=== PATIENT | male | born 1980 | race African-American/Black ===

== ENCOUNTER 2023-07-14 17:52 | Inpatient (IN) | payer OTHER ==
[2023-07-14 18:16] VITALS: BMI 23.1
[2023-07-14] MEDS ORDERED: MAGNESIUM HYDROX 2400MG/30ML ORAL SUSPENSION 30 ML CUP PO PRN (21:23)
[2023-07-14] MEDS ORDERED: guaiFENesin 600 MG TABLET.ER (FP) PO PRN (21:23)
[2023-07-14] MEDS ORDERED: LOPERAMIDE HCL 2 MG CAPSULE PO PRN (21:23)
[2023-07-14] MEDS ORDERED: BENZOCAINE/MENTHOL (CHLORASEPTIC ) LOZENGE MM PRN (21:23)
[2023-07-14] MEDS ORDERED: NALOXONE HCL (KLOXXADO) 8 MG SPRAY NS PRN (21:23)
[2023-07-14] MEDS ORDERED: DICYCLOMINE HCL 10 MG CAPSULE PO PRN (21:23)
[2023-07-14] MEDS ORDERED: NALOXONE HCL 0.4 MG/ML VIAL IM PRN (21:23)
[2023-07-14] MEDS ORDERED: BISMUTH SUBSALICYLATE 524 MG/30 ML PO PRN (21:23)
[2023-07-14] MEDS ORDERED: ACETAMINOPHEN 325 MG TABLET (FP) PO PRN (21:23)
[2023-07-14] MEDS ORDERED: ONDANSETRON *ODT* 4 MG TABLET SL PRN (21:23)
[2023-07-14] MEDS ORDERED: IBUPROFEN 400 MG TABLET (FP) PO PRN (21:23)
[2023-07-14] MEDS ORDERED: BENZONATATE 200 MG CAPSULE PO PRN (21:23)
[2023-07-14] MEDS: THIAMINE HCL 100 MG TABLET (FP) PO SCH (22:58)
[2023-07-14] MEDS: MELATONIN 5 MG TABLETS PO SCH (22:59)
[2023-07-14] MEDS: METHOCARBAMOL 500 MG TABLET PO PRN (22:59)
[2023-07-15] MEDS: hydrOXYzine PAMOATE 25 MG CAPSULE (FP) PO PRN (06:05)
[2023-07-15] MEDS: BICTEGRAV/EMTRICIT/TENOFOV (BIKTARVY) 50-200-25 MG TABLET PO SCH (10:07)
[2023-07-15] MEDS: PRENATAL VITAMINS W/ FOLIC ACID TABLET (FP) PO SCH (10:07)
[2023-07-15] MEDS: NICOTINE 14 MG/24 HOURS TOPICAL PATCH TD SCH (10:07)
[2023-07-15] MEDS: NICOTINE POLACRILEX 2 MG GUM BUC PRN (10:08)
[2023-07-15 10:43] LABS: CHLORIDE 101 mmol/L (98-107); POTASSIUM 4.3 mmol/L (3.5-5.1); SODIUM 137 mmol/L (136-145)
[2023-07-15 10:46] LABS: HEMATOCRIT 32.2 % (35.4-49); HEMOGLOBIN 10.4 GM/dL (11.7-16.9); MCH 26.6 pg (25.7-33.7); MCHC 32.4 g/dl (32.0-35.9); MEAN CELL VOLUME 82.1 fl (80-96); MEAN PLT VOLUME 8.6 fl (7.5-11.1); PLATELET COUNT 309 10^3/uL (134-434); RBC 3.92 M/mm3 (4.00-5.60); RDW 14.1 % (11.9-15.9); WHITE BLOOD COUNT 3.4 K/mm3 (4.0-10.0)
[2023-07-15 10:49] LABS: ALBUMIN 3.4 g/dl (3.4-5.0); ANION GAP 5 mmol/L (4-13); BLOOD UREA NITROGEN 6.8 mg/dL (7-18); CALCIUM 9.1 mg/dL (8.5-10.1); CO2 32 mmol/L (21-32); GLUCOSE,RANDOM 71 mg/dL (74-106)
[2023-07-15 10:52] LABS: CREATININE 0.8 mg/dL (0.55-1.3); SGOT/AST 36 U/L (15-37); SGPT/ALT 29 U/L (13-61)
[2023-07-15 10:54] LABS: BILIRUBIN,TOTAL 0.6 mg/dL (0.2-1); TOT PROT 8.4 g/dl (6.4-8.2)
[2023-07-15 10:55] LABS: ALK PHOS 108 U/L (45-117)
[2023-07-15] MEDS: diazePAM 5 MG TABLET PO PRN (13:03)
[2023-07-15] MEDS: diazePAM 5 MG TABLET PO SCH (17:35)
[2023-07-16] MEDS: IBUPROFEN 600 MG TABLET (FP) PO PRN (05:13)
[2023-07-16] MEDS: ARTIFICIAL TEARS OPHTHALMIC DROPS OS PRN (13:05)
[2023-07-17] MEDS: diazePAM 5 MG TABLET PO SCH (05:23)
[2023-07-17] MEDS: QUEtiapine FUMARATE 50 MG TABLET PO SCH (22:04)
[2023-07-17] MEDS: traZODone HCL 50 MG TABLET (FP) PO SCH (22:04)
[2023-07-18] MEDS: diazePAM 5 MG TABLET PO SCH (05:41)
[2023-07-18] MEDS: POLYETHYLENE GLYCOL (HEALTHYLAX) 3350 17 GM PACKET PO PRN (07:35)
[2023-07-18] MEDS: SULFAMETHOXAZOLE/TRIMETHOPRIM 800MG/160MG D.S. TABLET PO SCH (21:32)
[2023-07-18] MEDS: METHOCARBAMOL 500 MG TABLET PO PRN (21:33)
[2023-07-19] MEDS: diazePAM 5 MG TABLET PO ONE (05:08)
[2023-07-19] MEDS: MAG HYDROX/AL HYDROX/SIMETH 30 ML UNIT-DOSE CUP PO PRN (05:10)
[2023-07-19 09:06] VITALS: BP 130/78; PULSE 105; RESP 18; TEMP 99.1
== END 2023-07-19 11:34 | disposition other institution (70) | DRG 774 ==
LOC: YASAS 17:52 → Y3N 22:02
PROVIDERS: ADMIT Allergy & Immunology; ATTEND Surgery
PROC: HZ2ZZZZ Detoxification Services for Substance Abuse Treatment (ICD-10-PCS; principal; 2023-07-14)
DX: F10.230 Alcohol dependence with withdrawal, uncomplicated (principal); F14.20 Cocaine dependence, uncomplicated; F17.210 Nicotine dependence, cigarettes, uncomplicated; F19.282 Other psychoactive substance dependence with psychoactive substance-induced sleep disorder; F19.280 Other psychoactive substance dependence with psychoactive substance-induced anxiety disorder; F19.24 Other psychoactive substance dependence with psychoactive substance-induced mood disorder; F41.1 Generalized anxiety disorder; F32.9 Major depressive disorder, single episode, unspecified; F43.10 Post-traumatic stress disorder, unspecified; Z21 Asymptomatic human immunodeficiency virus [HIV] infection status; Z62.810 Personal history of physical and sexual abuse in childhood
CPT/HCPCS: 36415; 80053; 80305; 80307; 85027; 86780; 87635; 93005; 93010

== ENCOUNTER 2023-09-02 09:46 | Inpatient (IN) | payer OTHER ==
[2023-09-02 10:19] VITALS: BMI 23.2
[2023-09-02] MEDS ORDERED: ONDANSETRON *ODT* 4 MG TABLET SL PRN (10:50)
[2023-09-02] MEDS ORDERED: ACETAMINOPHEN 325 MG TABLET (FP) PO PRN (10:50)
[2023-09-02] MEDS ORDERED: BISMUTH SUBSALICYLATE 524 MG/30 ML PO PRN (10:50)
[2023-09-02] MEDS ORDERED: NALOXONE HCL (KLOXXADO) 8 MG SPRAY NS PRN (10:50)
[2023-09-02] MEDS ORDERED: LORazepam 1 MG TABLET PO PRN (10:50)
[2023-09-02] MEDS ORDERED: NICOTINE POLACRILEX 4 MG GUM BUC PRN (10:50)
[2023-09-02] MEDS ORDERED: BENZONATATE 200 MG CAPSULE PO PRN (10:50)
[2023-09-02] MEDS ORDERED: MAG HYDROX/AL HYDROX/SIMETH 30 ML UNIT-DOSE CUP PO PRN (10:50)
[2023-09-02] MEDS ORDERED: BENZOCAINE/MENTHOL (CHLORASEPTIC ) LOZENGE MM PRN (10:50)
[2023-09-02] MEDS ORDERED: DICYCLOMINE HCL 10 MG CAPSULE PO PRN (10:50)
[2023-09-02] MEDS ORDERED: NALOXONE HCL 0.4 MG/ML VIAL IM PRN (10:50)
[2023-09-02] MEDS ORDERED: IBUPROFEN 400 MG TABLET (FP) PO PRN (10:50)
[2023-09-02] MEDS ORDERED: LORazepam 2 MG TABLET ONE (11:20)
[2023-09-02] MEDS ORDERED: hydrOXYzine PAMOATE 25 MG CAPSULE (FP) PO ONE (11:20)
[2023-09-02] MEDS ORDERED: PRENATAL VITAMINS W/ FOLIC ACID TABLET (FP) PO ONE (11:20)
[2023-09-02] MEDS ORDERED: IBUPROFEN 600 MG TABLET (FP) PO ONE (11:20)
[2023-09-02] MEDS ORDERED: METHOCARBAMOL 500 MG TABLET ONE (11:20)
[2023-09-02] MEDS: PRENATAL VITAMINS W/ FOLIC ACID TABLET (FP) PO SCH (11:21)
[2023-09-02] MEDS: LORazepam 2 MG TABLET PO SCH (11:21)
[2023-09-02] MEDS: IBUPROFEN 600 MG TABLET (FP) PO PRN (11:27)
[2023-09-02] MEDS: METHOCARBAMOL 500 MG TABLET PO PRN (11:28)
[2023-09-02] MEDS: hydrOXYzine PAMOATE 25 MG CAPSULE (FP) PO PRN (11:28)
[2023-09-02] MEDS: THIAMINE HCL 100 MG TABLET (FP) PO SCH (22:31)
[2023-09-02] MEDS: MELATONIN 5 MG TABLETS PO SCH (22:31)
[2023-09-03] MEDS: LOPERAMIDE HCL 2 MG CAPSULE PO PRN (06:23)
[2023-09-03] MEDS: diazePAM 5 MG TABLET PO PRN (12:55)
[2023-09-03] MEDS: MAGNESIUM HYDROX 2400MG/30ML ORAL SUSPENSION 30 ML CUP PO PRN (12:58)
[2023-09-03 15:34] LABS: HEMATOCRIT 31.9 % (35.4-49); MCH 26.4 pg (25.7-33.7); MCHC 31.4 g/dl (32.0-35.9); MEAN PLT VOLUME 9.7 fl (7.5-11.1); PLATELET COUNT 231 10^3/uL (134-434); RDW 15.2 % (11.9-15.9); WHITE BLOOD COUNT 2.9 K/mm3 (4.0-10.0)
[2023-09-03 15:43] LABS: POTASSIUM 3.5 mmol/L (3.5-5.1)
[2023-09-03 15:46] LABS: ALBUMIN 3.4 g/dl (3.4-5.0); BLOOD UREA NITROGEN 9.2 mg/dL (7-18); CALCIUM 8.5 mg/dL (8.5-10.1)
[2023-09-03 15:51] LABS: BILIRUBIN,TOTAL 0.3 mg/dL (0.2-1); TOT PROT 8.1 g/dl (6.4-8.2)
[2023-09-03] MEDS: predniSONE 20 MG TABLET (UD) PO SCH (16:42)
[2023-09-03] MEDS: diazePAM 5 MG TABLET PO SCH (17:25)
[2023-09-03] MEDS: IBUPROFEN 400 MG TABLET (FP) PO PRN (19:31)
[2023-09-03] MEDS: traZODone HCL 50 MG TABLET (FP) PO SCH (22:20)
[2023-09-03] MEDS: QUEtiapine FUMARATE 100 MG TABLET (FP) PO SCH (22:20)
[2023-09-04] MEDS ORDERED: LORazepam 1 MG TABLET PO SCH (05:00)
[2023-09-04] MEDS: diazePAM 5 MG TABLET PO SCH (05:59)
[2023-09-04] MEDS: guaiFENesin 600 MG TABLET.ER (FP) PO PRN (11:03)
[2023-09-04] MEDS: BICTEGRAV/EMTRICIT/TENOFOV (BIKTARVY) 50-200-25 MG TABLET PO SCH (16:05)
[2023-09-04] MEDS: amLODIPine BESYLATE 10 MG TABLET (FP) PO SCH (16:05)
[2023-09-04] MEDS: LACTULOSE 20 GM/30 ML UDC (FOR ORAL USE ONLY) PO SCH (16:05)
[2023-09-04] MEDS: POLYETHYLENE GLYCOL (HEALTHYLAX) 3350 17 GM PACKET PO PRN (22:24)
[2023-09-05] MEDS ORDERED: LORazepam 0.5 MG TABLET PO PRN
[2023-09-05] MEDS ORDERED: LORazepam 0.5 MG TABLET PO SCH (05:00)
[2023-09-05] MEDS: diazePAM 5 MG TABLET PO SCH (05:31)
[2023-09-06] MEDS ORDERED: LORazepam 0.5 MG TABLET PO ONE (05:00)
[2023-09-06] MEDS: diazePAM 5 MG TABLET PO ONE (05:24)
[2023-09-06 05:54] VITALS: TEMP 97.7
[2023-09-06 08:52] VITALS: BP 156/103; PULSE 90; RESP 17
== END 2023-09-06 09:45 | disposition home or self-care (01) | DRG 774 ==
LOC: YASAS 09:46 → Y3N 11:52
PROVIDERS: ADMIT Allergy & Immunology; ATTEND Surgery
PROC: HZ2ZZZZ Detoxification Services for Substance Abuse Treatment (ICD-10-PCS; principal; 2023-09-02)
DX: F10.230 Alcohol dependence with withdrawal, uncomplicated (principal); F14.10 Cocaine abuse, uncomplicated; F16.20 Hallucinogen dependence, uncomplicated; F12.20 Cannabis dependence, uncomplicated; F17.210 Nicotine dependence, cigarettes, uncomplicated; F19.280 Other psychoactive substance dependence with psychoactive substance-induced anxiety disorder; F19.282 Other psychoactive substance dependence with psychoactive substance-induced sleep disorder; F19.24 Other psychoactive substance dependence with psychoactive substance-induced mood disorder; F41.1 Generalized anxiety disorder; F32.9 Major depressive disorder, single episode, unspecified; Z21 Asymptomatic human immunodeficiency virus [HIV] infection status; E72.20 Disorder of urea cycle metabolism, unspecified; I10 Essential (primary) hypertension; M54.30 Sciatica, unspecified side; M16.11 Unilateral primary osteoarthritis, right hip; Z62.810 Personal history of physical and sexual abuse in childhood
CPT/HCPCS: 36415; 80053; 80305; 80307; 82140; 85027; 86780

== ENCOUNTER 2024-05-04 12:38 | Inpatient (IN) | payer OTHER ==
[2024-05-04 13:43] VITALS: BMI 22.3
[2024-05-04] MEDS ORDERED: MAG HYDROX/AL HYDROX/SIMETH 30 ML UNIT-DOSE CUP PO PRN (14:10)
[2024-05-04] MEDS ORDERED: BENZOCAINE/MENTHOL (CHLORASEPTIC ) LOZENGE MM PRN (14:10)
[2024-05-04] MEDS ORDERED: IBUPROFEN 400 MG TABLET (FP) PO PRN (14:10)
[2024-05-04] MEDS ORDERED: guaiFENesin 600 MG TABLET.ER (FP) PO PRN (14:10)
[2024-05-04] MEDS ORDERED: ONDANSETRON *ODT* 4 MG TABLET SL PRN (14:10)
[2024-05-04] MEDS ORDERED: LOPERAMIDE HCL 2 MG CAPSULE PO PRN (14:10)
[2024-05-04] MEDS ORDERED: BENZONATATE 200 MG CAPSULE PO PRN (14:10)
[2024-05-04] MEDS ORDERED: NALOXONE (NARCAN) HCL 4 MG/0.1 ML SPRAY NS PRN (14:10)
[2024-05-04] MEDS ORDERED: DICYCLOMINE HCL 10 MG CAPSULE PO PRN (14:10)
[2024-05-04] MEDS: NICOTINE 7 MG/24 HOURS TOPICAL PATCH TD SCH (15:27)
[2024-05-04] MEDS ORDERED: PRENATAL VITAMINS W/ FOLIC ACID TABLET (FP) PO ONE (15:40)
[2024-05-04] MEDS: PRENATAL VITAMINS W/ FOLIC ACID TABLET (FP) PO SCH (15:42)
[2024-05-04] MEDS ORDERED: diazePAM 5 MG TABLET ONE (16:07)
[2024-05-04] MEDS: diazePAM 5 MG TABLET PO SCH (16:10)
[2024-05-04] MEDS: IBUPROFEN 600 MG TABLET (FP) PO PRN (18:28)
[2024-05-04] MEDS: THIAMINE 100 MG TABLET PO SCH (22:08)
[2024-05-04] MEDS: METHOCARBAMOL 500 MG TABLET PO PRN (22:08)
[2024-05-04] MEDS: MELATONIN 5 MG TABLETS PO SCH (22:08)
[2024-05-04] MEDS: MAGNESIUM HYDROX 2400MG/30ML ORAL SUSPENSION 30 ML CUP PO PRN (22:11)
[2024-05-05] MEDS: diazePAM 5 MG TABLET PO PRN (01:47)
[2024-05-05] MEDS: BISMUTH SUBSALICYLATE 524 MG/30 ML PO PRN (03:22)
[2024-05-05] MEDS: ACETAMINOPHEN 325 MG TABLET (FP) PO PRN (04:10)
[2024-05-05] MEDS: BICTEGRAV/EMTRICIT/TENOFOV (BIKTARVY) 50-200-25 MG TABLET PO SCH (10:19)
[2024-05-05] MEDS: hydrOXYzine PAMOATE 25 MG CAPSULE (FP) PO PRN (10:23)
[2024-05-05] MEDS: NAPROXEN 500 MG TABLET PO SCH (11:29)
[2024-05-05] MEDS: NICOTINE POLACRILEX 2 MG GUM BUC PRN (11:30)
[2024-05-05 12:55] LABS: HEMATOCRIT 28.1 % (35.4-49); HEMOGLOBIN 8.8 GM/dL (11.7-16.9); MCH 26.2 pg (25.7-33.7); MCHC 31.4 g/dl (32.0-35.9); MEAN CELL VOLUME 83.4 fl (80-96); MEAN PLT VOLUME 8.5 fl (7.5-11.1); PLATELET COUNT 282 10^3/uL (134-434); RBC 3.37 M/mm3 (4.00-5.60); RDW 16.8 % (11.9-15.9)
[2024-05-05 12:57] LABS: CHLORIDE 103 mmol/L (98-107); POTASSIUM 4.2 mmol/L (3.5-5.1); SODIUM 136 mmol/L (136-145)
[2024-05-05 13:03] LABS: CALCIUM 8.9 mg/dL (8.5-10.1)
[2024-05-05 13:04] LABS: ANION GAP 4 mmol/L (4-13); CO2 29 mmol/L (21-32); GLUCOSE,RANDOM 84 mg/dL (74-106)
[2024-05-05 13:07] LABS: CREATININE 0.8 mg/dL (0.55-1.3); SGOT/AST 32 U/L (15-37)
[2024-05-05 13:08] LABS: BILIRUBIN,TOTAL 0.7 mg/dL (0.2-1); SGPT/ALT 20 U/L (13-61)
[2024-05-05 13:09] LABS: ALK PHOS 117 U/L (45-117); TOT PROT 7.2 g/dl (6.4-8.2)
[2024-05-05] MEDS: QUEtiapine FUMARATE 100 MG TABLET (FP) PO SCH (22:13)
[2024-05-05] MEDS: traZODone HCL 50 MG TABLET (FP) PO SCH (22:14)
[2024-05-06] MEDS: diazePAM 5 MG TABLET PO SCH (05:29)
[2024-05-07] MEDS: diazePAM 5 MG TABLET PO SCH (06:06)
[2024-05-07] MEDS: FERROUS SO4 325 MG TABLET (FP) PO SCH (10:03)
[2024-05-07] MEDS: PANTOPRAZOLE 40 MG TABLET PO SCH (10:03)
[2024-05-07] MEDS: GABAPENTIN 100 MG CAPSULE PO SCH (10:03)
[2024-05-07] MEDS: POLYETHYLENE GLYCOL (HEALTHYLAX) 3350 17 GM PACKET PO PRN (10:09)
[2024-05-07 11:27] LABS: IRON SERUM 67 ug/dL (50-175); TOTAL IRON BINDING CAPACITY 339 ug/dL (250-450)
[2024-05-07] MEDS: METHOCARBAMOL 500 MG TABLET PO PRN (17:48)
[2024-05-07 21:15] VITALS: TEMP 97.7
[2024-05-08] MEDS: diazePAM 5 MG TABLET PO ONE (05:50)
[2024-05-08 09:17] VITALS: BP 138/83; PULSE 92; RESP 18
[2024-05-08] MEDS: NALOXONE (NYS OPIOID OVERDOSE PROGRAM) 4 MG/0.1 ML SPRAY NS SCH (10:48)
== END 2024-05-08 10:35 | disposition home or self-care (01) | DRG 774 ==
LOC: YASAS 12:38 → Y3N 15:40
PROVIDERS: ADMIT Allergy & Immunology; ATTEND Surgery
PROC: HZ2ZZZZ Detoxification Services for Substance Abuse Treatment (ICD-10-PCS; principal; 2024-05-04)
DX: F10.230 Alcohol dependence with withdrawal, uncomplicated (principal); F14.20 Cocaine dependence, uncomplicated; F16.20 Hallucinogen dependence, uncomplicated; F17.210 Nicotine dependence, cigarettes, uncomplicated; F19.24 Other psychoactive substance dependence with psychoactive substance-induced mood disorder; F41.1 Generalized anxiety disorder; F43.10 Post-traumatic stress disorder, unspecified; F32.A Depression, unspecified; Z21 Asymptomatic human immunodeficiency virus [HIV] infection status; D64.9 Anemia, unspecified; K21.9 Gastro-esophageal reflux disease without esophagitis; M16.11 Unilateral primary osteoarthritis, right hip; Z62.810 Personal history of physical and sexual abuse in childhood; Z63.8 Other specified problems related to primary support group; Z79.899 Other long term (current) drug therapy
CPT/HCPCS: 36415; 80053; 80305; 80307; 83540; 83550; 85027; 86780; 93005; 93010